=== PATIENT | male | born 1970 | race Hispanic/Latino ===

== ENCOUNTER 2018-08-18 18:25 | Observation (INO) | payer OTHER, SELFPAY ==
[2018-08-18] VITALS (7 sets, daily range): BP systolic 134–158; BP diastolic 80–96; PULSE 58–67; RESP 13–19; TEMP 36.4–36.6; O2SAT 95–99; BMI 37.6
--- NOTE | 2018-08-18 18:44 | ED.CHESTPAIN ---
HPI - Chest Pain General Chief Complaint: Chest Pain Stated Complaint: Pain in chest Time Seen by Provider: 08/18/18 18:37 Source: family Mode of arrival: ambulatory Limitations: language barrier History of Present Illness HPI narrative: Patient is a 47-year-old male presenting with chest pain. He is here with his who is helping to translate. He has known history of hypertension and tobacco abuse. He typically walks to work every day without a problem. However at around 4:00 p.m. he walks to work as usual however he had significant pain in his chest radiating up to his jaw bilaterally and down his left arm. It lasted for about 2 hours he got extremely sweaty. It only now is starting to subside. He denies nausea no fever. states that he has not slept in the last 3 nights. He typically takes amitriptyline to help him sleep but they have been out. His father also had an [place] in his 40s. MD complaint: chest pain Duration: improved Onset: during exertion Pain location: substernal Severity: severe Quality: heaviness Pain radiation: LUE and neck Relieving factors: rest Treatments prior to arrival chest pain: none Related Data Home Medications Medication Instructions Recorded Confirmed lisinopril 10 mg PO DAILY 08/18/18 08/18/18 venlafaxine 37.5 mg PO DAILY 08/18/18 08/18/18 Allergies Allergy/AdvReac Type Severity Reaction Status Date / Time No Known Drug Allergies Allergy Verified 08/18/18 19:44 Review of Systems Review of Systems GENERAL: Denies chills, fatigue, malaise, fever, sweats, travel HEENT: Denies sinus pain, ear pain, sore throat, difficulty swallowing, neck pain RESPIRATORY: Denies dyspnea, cough, wheezing, hemoptysis, sputum. CARDIOVASCULAR: See HPI GASTROINTESTINAL: Denies nausea, vomiting, abdominal pain, diarrhea, constipation, melena. : Denies dysuria, frequency, incontinence, hematuria, urinary retention, flank pain. MUSCULOSKELETAL: Denies weakness, joint pain, or bony pain SKIN: No rash, no erythema, no pruritus NEUROLOGIC: Denies weakness, dizziness, headache, numbness, change in speech, confusion PSYCHIATRIC: No concerning psychosocial issues. 12 point review of systems is negative except for those stated above and HPI [facility] Medical History Hypertension (Acute) Social History (Updated 08/18/18 @ 18:56 by Nuha Becerril DO) Smoking Status: Current every day smoker alcohol intake: never substance use type: does not use Social History household members: significant other Smoking Status: Current every day smoker alcohol intake: never substance use type: does not use Exam Initial Vital Signs Initial Vital Signs: Vital Signs Temperature 97.5 F L 08/18/18 18:34 Pulse Rate 59 L 08/18/18 18:34 Respiratory Rate 19 08/18/18 18:34 Blood Pressure 136/80 08/18/18 18:34 Pulse Oximetry 98 08/18/18 18:34 GENERAL: [Well-appearing, well-nourished] and in [no acute] distress. HEENT: Head atraumatic,EOMI, pupils reactive, CARDIOVASCULAR: Regular rate and rhythm without murmurs, rubs or gallops. RESPIRATORY: Breath sounds equal bilaterally, no wheezes rales or rhonchi. ABDOMEN: Soft, nontender. Normoactive bowel sounds all 4 quadrants. No guarding or rebound. EXTREMITIES: Normal range of motion, no clubbing or edema. Neurovascularly intact NEUROLOGICAL: Alert and oriented x4.Normal gait and speech. Cranial nerves II through XII grossly intact. SKIN: Warm, dry, no laceration, no petechiae, no rashes or lesions. Scores PERC Score Age greater than or equal to 50 years: No Heart rate greater than or equal to 100 bpm: No Room Air O2 Sat less than 95%: No Unilateral leg swelling: No Recent trauma or surgery: No Hemoptysis: No Prior PE or DVT: No Hormone Use: No Total PERC Score: 0 Wells' Criteria for PE Clinical signs and symptoms of PE: No PE is #1 Dx or equally likely: No Heart rate > 100: No Immobilization at least 3 days or surg in previous 4 weeks: No History of PE or DVT: No Hemoptysis: No Malignancy w/Treatment within 6 months or palliative: No Wells' PE Score total: 0 Course Orders Ordered: ED Orders 08/18/18 18:43 Complete Blood Count AUTO DIFF Stat Comprehensive Metabolic Panel Stat D Dimer Stat Hemoglobin A1C% w Est Avg Glu Routine Lipase Stat Magnesium Routine Troponin & CK Cardiac Panel Stat 08/18/18 18:53 XR chest 1V Stat EKG-12 Lead Stat 08/19/18 05:00 NM carmen perf SPECT rest & str Urgent Basic Metabolic Panel Routine Complete Blood Count AUTO DIFF Routine Lipid Panel Routine Acetaminophen (Tylenol) 650 mg PO Q6HR PRN PRN Reason: As Needed for Fever/Mild Pain Docusate Sodium (Colace) 100 mg PO BID PRN PRN Reason: Constipation Sodium Chloride (Normal Saline 0.9%) 1,000 mls @ 150 mls/hr IV CONT KISHA Last Infusion: 08/18/18 23:40 Dose: 150 mls/hr Infusion: 08/18/18 21:45 Dose: 0 mls/hr Admin: 08/18/18 19:26 Dose: 150 mls/hr Morphine Sulfate (Morphine) 2 mg IV Q4HR PRN PRN Reason: Pain, Moderate (4-6) Naloxone HCl (Narcan) 0.2 mg IV Q2MIN PRN PRN Reason: Opiate Reversal Ondansetron HCl (Zofran Odt) 4 mg PO Q8HR PRN PRN Reason: Nausea And Vomiting Discontinued Medications Albuterol/Ipratropium (Duoneb) 3 ml INH NOW ONE Stop: 08/18/18 18:58 Last Admin: 08/18/18 19:13 Dose: 3 ml Aspirin (Aspirin Chew) 324 mg PO NOW ONE Stop: 08/18/18 18:54 Last Admin: 08/18/18 19:26 Dose: 324 mg Vital Signs - 8 hr 08/18/18 18:34 08/18/18 18:45 08/18/18 19:00 Temperature 97.5 F L Pulse Rate 59 L 64 67 Respiratory Rate 19 13 16 Blood Pressure 136/80 Blood Pressure [Left Arm] 136/80 134/84 Pulse Oximetry 98 97 99 08/18/18 19:13 08/18/18 21:04 08/18/18 21:30 Temperature 97.7 F Pulse Rate 58 L 62 Respiratory Rate 14 19 Blood Pressure 158/96 H Blood Pressure [Left Arm] Pulse Oximetry 95 96 97 08/18/18 23:30 08/19/18 00:20 Temperature 97.9 F Pulse Rate 67 Respiratory Rate 18 Blood Pressure 143/84 H Blood Pressure [Left Arm] Pulse Oximetry 97 98 MDM - Chest Pain Lab Data Attestation: I reviewed the patient's lab results. Result diagrams: 08/18/18 18:43 08/18/18 18:43 Lab Results 08/18/18 08/18/18 08/18/18 Range/Units 18:43 18:43 18:43 WBC 7.5 (4.5-11.0) X10^3/uL RBC 5.68 (4.5-5.9) X10^6/uL Hgb 16.6 (13.5-17.5) g/dL Hct 50.2 (41-53) % MCV 88.3 (80-100) fL MCH 29.1 (26-34) PG MCHC 33.0 (30-36) % RDW 13.7 (11.6-14.8) % Plt Count 223 (150-400) X10^3/uL Neut % (Auto) 69.3 (50-75) % Lymph % (Auto) 23.2 L (25-40) % Gray % (Auto) 4.8 (3-14) % Eos % (Auto) 2.2 (2-4) % Baso % (Auto) 0.5 (0-2) % Neut # (Auto) 5200 (8760-5287) /uL Lymph # (Auto) 1700 (4138-0183) /uL Gray # (Auto) 400 (0-900) /uL Eos # (Auto) 200 (0-450) /uL Baso # (Auto) 0 (0-100) /uL D-Dimer < 200 (<230) ng/mL Sodium 141 (137-145) mmol/L Potassium 4.0 (3.4-5.1) mmol/L Chloride 106 (98-107) mmol/L Carbon Dioxide 23 (22-32) mmol/L BUN 22 H (9-20) mg/dL Creatinine 0.90 (0.66-1.25) mg/dL Estimated GFR > 60.0 (>60) mL/min BUN/Creatinine Ratio 24.4 H (6-22) Glucose 131 H (70-100) mg/dL Hemoglobin A1c (4.0-6.0) % Calcium 9.5 (8.4-10.2) mg/dL Magnesium (1.6-2.3) mg/dL Total Bilirubin 0.3 (0.2-1.3) mg/dL AST 26 (17-59) IU/L ALT 34 (21-72) IU/L Alkaline Phosphatase 91 (38-126) U/L Total Creatine Kinase 189 H (55-170) U/L CK-MB (CK-2) 1.46 (<2.37) ng/mL CK-MB (CK-2) Rel Index 0.8 L (1.5-5.0) % Troponin I < 0.012 (0.01-0.034) ng/mL Total Protein 7.6 (6.3-8.2) g/dL Albumin 4.6 (3.5-5.0) g/dL Globulin 3.0 (1.7-4.1) g/dL Albumin/Globulin Ratio 1.5 (1.0-2.8) Lipase 68 (23-300) U/L 08/18/18 08/18/18 Range/Units 18:43 18:43 WBC (4.5-11.0) X10^3/uL RBC (4.5-5.9) X10^6/uL Hgb (13.5-17.5) g/dL Hct (41-53) % MCV (80-100) fL MCH (26-34) PG MCHC (30-36) % RDW (11.6-14.8) % Plt Count (150-400) X10^3/uL Neut % (Auto) (50-75) % Lymph % (Auto) (25-40) % Gray % (Auto) (3-14) % Eos % (Auto) (2-4) % Baso % (Auto) (0-2) % Neut # (Auto) (1744-1230) /uL Lymph # (Auto) (0314-6415) /uL Gray # (Auto) (0-900) /uL Eos # (Auto) (0-450) /uL Baso # (Auto) (0-100) /uL D-Dimer (<230) ng/mL Sodium (137-145) mmol/L Potassium (3.4-5.1) mmol/L Chloride (98-107) mmol/L Carbon Dioxide (22-32) mmol/L BUN (9-20) mg/dL Creatinine (0.66-1.25) mg/dL Estimated GFR (>60) mL/min BUN/Creatinine Ratio (6-22) Glucose (70-100) mg/dL Hemoglobin A1c 5.3 (4.0-6.0) % Calcium (8.4-10.2) mg/dL Magnesium 2.2 (1.6-2.3) mg/dL Total Bilirubin (0.2-1.3) mg/dL AST (17-59) IU/L ALT (21-72) IU/L Alkaline Phosphatase (38-126) U/L Total Creatine Kinase (55-170) U/L CK-MB (CK-2) (<2.37) ng/mL CK-MB (CK-2) Rel Index (1.5-5.0) % Troponin I (0.01-0.034) ng/mL Total Protein (6.3-8.2) g/dL Albumin (3.5-5.0) g/dL Globulin (1.7-4.1) g/dL Albumin/Globulin Ratio (1.0-2.8) Lipase (23-300) U/L Imaging Data Chest x-ray: Radiologist's impression: PROCEDURE: XR CHEST 1V INDICATIONS: chest pain TECHNIQUE: One view of the chest was acquired. COMPARISON: None. FINDINGS: Surgical changes and devices: None. Lungs and pleura: There are low lung volumes with associated vascular crowding. Lungs are otherwise clear. No pleural effusions or pneumothorax. Mediastinum: Mediastinal contours appear normal. Heart size is normal. Bones and chest wall: No suspicious bony lesions. Overlying soft tissues appear unremarkable. IMPRESSION: 1. Low lung volumes without definite acute cardiopulmonary disease. Dictated by: Alphonso Anguiano M.D. on 08/18/2018 at 20:04 ECG Data Attestation: I personally reviewed and interpreted this ECG as follows: Prior ECG tracings: not available for review Interpretation: EKG 1. Normal sinus rhythm rate [address] changes T-wave inversion noted in lead 3. EKG 2. Rate 60 persistent T-wave inversions noted in lead [address] elevations similar to previous EKG MDM Narrative Medical decision making narrative: Patient's symptoms are concerning for cardiac problem. He has remained chest pain-free while in the ED. He received aspirin. Mild improvement after bronchodilators. D-dimer negative low risk for PE. Manjula, agrees with observation. Discharge Plan Departure Patient Disposition: Admitted as Observation Clinical Impression: Chest pain Qualifiers: Chest pain type: unspecified Qualified Code(s): R07.9 - Chest pain, unspecified Discharge Date/Time: 08/18/18 21:45 Interventions: ED Discharge Assessment Last Done: 08/18/18 21:10 Admit Date/Time: 08/18/18 19:58 Admit Provider: Cordell Fair
--- NOTE | 2018-08-18 18:53 | DI.RAD.S_ITS ---
PROCEDURE: XR CHEST 1V INDICATIONS: chest pain TECHNIQUE: One view of the chest was acquired. COMPARISON: None. FINDINGS: Surgical changes and devices: None. Lungs and pleura: There are low lung volumes with associated vascular crowding. Lungs are otherwise clear. No pleural effusions or pneumothorax. Mediastinum: Mediastinal contours appear normal. Heart size is normal. Bones and chest wall: No suspicious bony lesions. Overlying soft tissues appear unremarkable. IMPRESSION: 1. Low lung volumes without definite acute cardiopulmonary disease. Dictated by: Alphonso Anguiano M.D. on 08/18/2018 at 20:04 Approved by: Alphonso Anguiano M.D. on 08/18/2018 at 20:05
[2018-08-18 19:03] LABS: Add Manual Diff / Slide Review NO; Basophils Absolute Auto 0 /uL (0-100); Basophils Percent Auto 0.5 % (0-2); Eosinophils Absolute Auto 200 /uL (0-450); Eosinophils Percent Auto 2.2 % (2-4); Hematocrit 50.2 % (41-53); Hemoglobin 16.6 g/dL (13.5-17.5); Lymphocytes Absolute Auto 1700 /uL (1100-4500); Lymphocytes Percent Auto 23.2 % (25-40); Mean Corpuscular Hemoglobin 29.1 PG (26-34); Mean Corpuscular Volume 88.3 fL (80-100); Monocytes Absolute Auto 400 /uL (0-900); Monocytes Percent Auto 4.8 % (3-14); Neutrophils Absolute Auto 5200 /uL (1500-7000); Neutrophils Percent Auto 69.3 % (50-75); Platelet Count 223 X10^3/uL (150-400); Red Blood Cell Count 5.68 X10^6/uL (4.5-5.9); Red Cell Distribution Width 13.7 % (11.6-14.8); White Blood Cell Count 7.5 X10^3/uL (4.5-11.0)
[2018-08-18 19:08] LABS: Alanine Aminotransferase 34 IU/L (21-72); Albumin 4.6 g/dL (3.5-5.0); Albumin Globulin Ratio 1.5 (1.0-2.8); Alkaline Phosphatase 91 U/L (38-126); Aspartate Aminotransferase 26 IU/L (17-59); BUN Creatinine Ratio 24.4 (6-22); Bilirubin Total 0.3 mg/dL (0.2-1.3); Blood Urea Nitrogen 22 mg/dL (9-20); Calcium 9.5 mg/dL (8.4-10.2); Carbon Dioxide 23 mmol/L (22-32); Chloride 106 mmol/L (98-107); Creatine Kinase 189 U/L (55-170); D Dimer < 200 ng/mL (<230); Estimated Glomerular Filt Rate > 60.0 mL/min (>60); Glucose 131 mg/dL (70-100); Lipase 68 U/L (23-300); Sodium 141 mmol/L (137-145); Total Protein 7.6 g/dL (6.3-8.2)
[2018-08-18] MEDS: ALBUTEROL/IPRATROPIUM 3 ML AMPUL INH (19:13)
[2018-08-18 19:21] LABS: HEMOLYSIS < 15 (0-50); Troponin I < 0.012 ng/mL (0.01-0.034)
[2018-08-18 19:24] LABS: CKMB % Relative Index 0.8 % (1.5-5.0); Creatine Kinase MB 1.46 ng/mL (<2.37)
[2018-08-18] MEDS: ASPIRIN 81 MG TAB 324 MG PO (19:26)
[2018-08-18] MEDS: SODIUM CHLORIDE 0.9% 1,000 ML 150 ML IV (19:26)
[2018-08-18 21:18] LABS: Magnesium 2.2 mg/dL (1.6-2.3)
[2018-08-18 21:21] LABS: Hemoglobin A1C% w Est Avg Glu 5.3 % (4.0-6.0)
--- NOTE | 2018-08-18 21:45 | PC.NURSE ---
normal saline to continue in acute care
--- NOTE | 2018-08-18 22:04 | P.HP_ITS ---
History of Present Illness Date Patient Seen: 08/18/18 Time Patient Seen: 23:40 Chief complaint: Pain in chest Narrative: The patient is a 47-year-old male with PMH of HTN, HLD, tob acco dependence, and prior history of amphetamine use (quit 2017) who presented to the ED earlier out of concern for chest pain. patient experienced sudden, progressive chest discomfort while walking to work. Usually, it takes 20 minutes for patient to walk to work. It is being reported that 10 minutes into the wall he started to experience lightheadedness and mid-sternal chest pain. Describes s ensation as heavy and pressure-like. Intensity of chest discomfort during the entire event did not exceed 6/10. Associated symptoms included paresthesia of left hand and forearm and bilateral tightness of the jaw. At time of the event he also experienced blurry vision, black spots, diaphoresis, palpitations, and tinnitis. Patient continued walking and reaches place of employment. At that time reports being nauseated. He had one episode of vomiting and one episode of diarrhea. At one point he did sit down to rest and believes may have had brief loss of consciousness. This was unwitnessed and cannot be confirmed. The entire episode lasted less than 30 minutes, self resolved with rest. By the time he arrived to the ED he was asymptomatic. No similar events in the past. Patient has underlying history of hypertension, diagnosed in 2017, for which he takes lisinopril. Patient checks his BP routinely in notes said ranging 125- 130/80 mmHg. He has dyslipidemia, diagnosed in the past year, that is currently being managed with dietary vs. non-pharmacological measures. Patient is c onsidered obese (BMI 37.6), his weight has been stable. He is a current some day smoker, reports smoking 1 pack per week for a period of 2 years, which she attributes to anxiety. 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 No prior current history of alcohol use. Denies prior history of MA, cerebrovascular events, cardiac arrhythmia, thyroid disease, GERD, and thrombosis. Family history is significant for MA vs. sudden cardiac (paternal grandfather, age 65) and CVA (father, age 40). In the past month patient reports waking up from sleep, 2 to 3 times a week, with anxiety, palpitations, and shortness of breath. Denies orthopnea, per ipheral edema, or exertional dyspnea. He does not endorse any pulmonary history. Day prior to the event patient was clogged pressure-like sensation in his ears and pounding headache, localized to right frontal temporal aspect of the head. Patient reports a degree of anxiety and difficulty sleeping at night. He is frequently bothered by right lower extremity tention, discomfort and frequent movement. He does not endorse sensation of paresthesia. In the past 1-2 months he has been taking his significant other's amitriptyline, 20 mg, at bedtime to help him sleep. He reports feeling tired and an overall sensation of insufficient rest due to impaired sleep pattern. Patient History Medical History Hypertension (Acute) Social History (Updated 08/18/18 @ 18:56 by Nuha Becerril DO) Smoking Status: Current every day smoker alcohol intake: never substance use type: does not use Family & Social History Social History: household members significant other Prior Living Arrangements House Safety & Behavioral: Feels Safe in Current Yes Environment Tobacco & Substance use: Smoking Status Current every day smoker alcohol intake never Substance Use Type does not use Meds Home Medications Medication Instructions Recorded Confirmed Type lisinopril 10 mg PO DAILY 08/18/18 08/18/18 History venlafaxine 37.5 mg PO DAILY 08/18/18 08/18/18 History Allergies Allergy/AdvReac Type Severity Reaction Status Date / Time No Known Drug Allergies Allergy Verified 08/18/18 19:44 Review of Systems Review of Systems All systems reviewed & are unremarkable except as noted in HPI and below Exam Vital Signs (past 8 hours): - 08/18/18 18:34 08/18/18 18:45 08/18/18 19:00 Temperature 97.5 F L Pulse Rate 59 L 64 67 Respiratory Rate 19 13 16 Blood Pressure 136/80 Blood Pressure [Left Arm] 136/80 134/84 Pulse Oximetry 98 97 99 08/18/18 19:13 08/18/18 21:04 Temperature 97.7 F Pulse Rate 58 L 62 Respiratory Rate 14 19 Blood Pressure 158/96 H Blood Pressure [Left Arm] Pulse Oximetry 95 96 Oxygen Delivery Method Room Air Narrative Exam Narrative: Constitutional: NAD, Neurologic: AOx3, no focal neurological deficits Head: NC, AT Eyes: PERRL, EOMI, Ears: external ears normal, no otorrhea Nose: external nose normal, no rhinorrhea or epistaxis Throat: MMM, oropharynx w/o exudate Neck: no masses, lymphadenopathy, or JVD Chest / Respiratory: equal chest rise, unlabored respiratory effort, no tachypnea CTAB no rrw Heart / CV: S1S2, no murmur Abdomen / GI: round, NT, ND, + BS, no organomegaly : no suprapubic tenderness, no CVA Peripheral / Vascular: warm to touch, DP and PT pulses palpable, no edema Musc: full ROM of upper and lower extremities, adequate muscle tone and bulk Skin: no ecchymosis or suspicious lesions / ulcers Objective Labs Result Diagrams: 08/18/18 18:43 08/18/18 18:43 Labs: Laboratory Results - last 24 hr 08/18/18 08/18/18 08/18/18 18:43 18:43 18:43 WBC 7.5 RBC 5.68 Hgb 16.6 Hct 50.2 MCV 88.3 MCH 29.1 MCHC 33.0 RDW 13.7 Plt Count 223 Neut % (Auto) 69.3 Lymph % (Auto) 23.2 L [place]ane % (Auto) 4.8 Eos % (Auto) 2.2 Baso % (Auto) 0.5 Neut # (Auto) 5200 Lymph # (Auto) 1700 [place] # (Auto) 400 Eos # (Auto) 200 Baso # (Auto) 0 D-Dimer < 200 Sodium 141 Potassium 4.0 Chloride 106 Carbon Dioxide 23 BUN 22 H Creatinine 0.90 Estimated GFR > 60.0 BUN/Creatinine Ratio 24.4 H Glucose 131 H Hemoglobin A1c Calcium 9.5 Magnesium Total Bilirubin 0.3 AST 26 ALT 34 Alkaline Phosphatase 91 Total Creatine Kinase 189 H CK-MB (CK-2) 1.46 CK-MB (CK-2) Rel Index 0.8 L Troponin I < 0.012 Total Protein 7.6 Albumin 4.6 Globulin 3.0 Albumin/Globulin Ratio 1.5 Lipase 68 08/18/18 08/18/18 18:43 18:43 WBC RBC Hgb Hct MCV MCH MCHC RDW Plt Count Neut % (Auto) Lymph % (Auto) [place] % (Auto) Eos % (Auto) Baso % (Auto) Neut # (Auto) Lymph # (Auto) [place] # (Auto) Eos # (Auto) Baso # (Auto) D-Dimer Sodium Potassium Chloride Carbon Dioxide BUN Creatinine Estimated GFR BUN/Creatinine Ratio Glucose Hemoglobin A1c 5.3 Calcium Magnesium 2.2 Total Bilirubin AST ALT Alkaline Phosphatase Total Creatine Kinase CK-MB (CK-2) CK-MB (CK-2) Rel Index Troponin I Total Protein Albumin Globulin Albumin/Globulin Ratio Lipase Assessment & Plan Assessment & Plan narrative: Chest pain, acute, present on admission, active EKG, 08/18/18 @ 1833, SB (v-rate 59), short NE interval, ST changes V3 (to monitor) EKG, 08/18/18 @ 1914, SR (v-rate 60) No further re-curence since presentation to the hospital - Trop < 0.012, D-Dimer < 200, no overt electrolyte abnormalities, EKG non- ischemic VSS - Received ASA 325 in ED, will continue 81 mg QD - Tele monitoring - Trend troponin 0130 and 0730 - Risk stratify: A1C, HLD - NPO at midnight - Stress Test on 08/19/2018 - Supplemental O2 prn, keep SpO2 > 94% - Morphine 2 mg prn CP Syncope, acute, present on admission, active Suspected syncope in the setting of systemic hypoperfusion vs cardiac arrhythmia vs acute coronary event FHx is concerning for sudden cardiac in grandfather at age of 60 and stroke in father at age of 40 - orthostatic BP x2 occurances - echo - bilat carotid u/s Hypovolemia, acute, present on admission, active - IVF @ 75 ml/hr x1L, then d/c Essential hypertension, chronic, present on admission, active - Trend BP while inpatient, controlled by report - Resume PT regimen of lisinopril 10 mg QD -Recommend outpatient sleep study as it may be contributing to PND events, hypertension, and restless leg Dyslipidemia, chronic, present on admission, active unlikely not controlled Patient was told in the past year that he has an abnormal lipid profile. At present time being encouraged to pursue diet and weight reduction approach. Given current morbidities of HTN, obesity, and tobacco use and significant family history of CVA and heart disease in patient's father and grandfather, I would recommend aggressive risk factor modification - FLP in am - Consider starting on atorvastatin 20-40 mg q.h.s. Obesity (BMI 37.6), chronic, present on admission, uncontrolled - Weight reduction highly encouraged via exercise and lifestyle modification in an effort to reduce sequela cardiac and cerebrovascular events Tobacco use, chronic condition, present on admission, active (overall use is light to moderate 1 ppw x2 years) - tobacco cessation highly encouraged - nicotine patch prn Anxiety, chronic condition, present on admission, active - Resume [employer] UNDERWRITER dose of venlafaxine Limb movement activity, chronic (not treated), present on admission, active / bothersome - Recommend outpatient sleep study - Will trial gabapentin 300 mg b.i.d. to help with nectar no limb movement / discomfort, anxiety (as an adjuvant tx to venlofaxine), and sleep Potentially to discuss use of gabapentin with his PCP in the outpatient setting. - Discouraged use of amitriptyline as tricyclic antidepressants can precipitate, worsen or exacerbate limb movement / RLS Full code. Surrogate decision maker is Kyara Grace (significant other) VTE prophylaxis with SCDs Home medications reviewed and reconciled accordingly
[2018-08-19 00:20] VITALS: O2SAT 98
--- NOTE | 2018-08-19 00:24 | PC.NURSE ---
2300- Pt admit for chest pain while walking to work this AM. Denies chest pain while lying in bed, states some dizziness occurs when walking to bathroom. Egyptian speaker w/ girlfriend present in room who speaks tongan; pt is NPO at midnight for stress test in the morning. On telemetry reading SR at this time. 0000- No IV fluids running, but NS ordered to run. Connected to pt as ordered. 0545- Othrostatic BP's ordered qshift, completed by CART DRIVER. UA collected per orders.
[2018-08-19 02:21] LABS: Troponin I < 0.012 ng/mL (0.01-0.034)
[2018-08-19] MEDS: SODIUM CHLORIDE 0.9% 1,000 ML 75 ML IV ×2 (02:57→06:31)
[2018-08-19 06:02] VITALS: BP 131/80; BP 133/88; BP 143/98; PULSE 59; PULSE 63; PULSE 67; RESP 17; TEMP 36.6; O2SAT 98
[2018-08-19 07:27] VITALS: BP 128/90; PULSE 57; RESP 18; TEMP 36.8; O2SAT 95
[2018-08-19 07:56] LABS: Add Manual Diff / Slide Review NO; Basophils Absolute Auto 100 /uL (0-100); Basophils Percent Auto 0.6 % (0-2); Eosinophils Absolute Auto 200 /uL (0-450); Eosinophils Percent Auto 2.8 % (2-4); Hematocrit 44.3 % (41-53); Lymphocytes Absolute Auto 2300 /uL (1100-4500); Lymphocytes Percent Auto 26.3 % (25-40); Mean Corpuscular Volume 88.2 fL (80-100); Monocytes Absolute Auto 500 /uL (0-900); Neutrophils Absolute Auto 5600 /uL (1500-7000); Neutrophils Percent Auto 64.3 % (50-75); Platelet Count 195 X10^3/uL (150-400); Red Blood Cell Count 5.02 X10^6/uL (4.5-5.9); Red Cell Distribution Width 13.5 % (11.6-14.8); White Blood Cell Count 8.7 X10^3/uL (4.5-11.0)
[2018-08-19 08:11] LABS: BUN Creatinine Ratio 26.3 (6-22); Blood Urea Nitrogen 21 mg/dL (9-20); Calcium 8.8 mg/dL (8.4-10.2); Carbon Dioxide 25 mmol/L (22-32); Chloride 108 mmol/L (98-107); Cholesterol 207 mg/dL (140-199); Estimated Glomerular Filt Rate > 60.0 mL/min (>60); Glucose 99 mg/dL (70-100); HDL Cholesterol 35 mg/dL (40-60); HEMOLYSIS < 15 (0-50); LDL Cholesterol Calculated 142 mg/dL (<100); Sodium 139 mmol/L (137-145); Triglycerides 152 mg/dL (35-150)
[2018-08-19 08:22] LABS: Troponin I < 0.012 ng/mL (0.01-0.034)
--- NOTE | 2018-08-19 09:15 | CM.DANOTE ---
Addendum entered by Jeri Blanca R.N. 08/19/18 10:39: Discussed patient in team rounds. Hospitalist, Dr. Pablo, wanted to order a stress test today, but no physician available to do procedure. She stated that he is high risk for cardiac history, due to his family history, and blood pressure. She is considering transferring patient to [facility] for a cardiac workup. Will continue to follow. Original Note: DCP: Case received, EMR reviewed and met with patient. Introduced self and role. Significant other, Kyara, was at bedside to translate, for patient speaks limited Kuwaiti, for patient is German speaking. Information regarding patient's baseline health retrieved by significant, as well as information currently available. Patient is a 47 year old male who admitted yesterday afternoon to the care of the hospitalist team. PCP: [facility]. Payer: Healthcare Management Patient came to hospital via family vehicle due to symptoms of chest pain. He is here for testing. He has been healthy prior. He has a history of amphetamine dependence back in 2017, but no longer takes. He is employed at [employer], and walks to work. Vonnie, is significant other that he resides with. She was able to translate. She stated that they could not remember the name of his primary care provider, but confirmed that he does go to [facility]. Patient resides here in [place]. P: DCP to continue to follow. He may be having further cardiac testing today before discharging home. Jeri Blanca RN/Brine Tank Separator Operator
[2018-08-19 09:20] VITALS: O2SAT 95
[2018-08-19] MEDS: VENLAFAXINE ER 37.5 MG CAP PO (10:21)
[2018-08-19] MEDS: GABAPENTIN 300 MG CAPSULE PO (10:22)
[2018-08-19] MEDS: LISINOPRIL 10 MG TABLET PO (10:23)
[2018-08-19] MEDS: NICOTINE 7 MG PATCH TOP (10:26)
[2018-08-19] MEDS: ASPIRIN EC 81 MG TABLET PO (10:26)
--- NOTE | 2018-08-19 11:25 | PM.DS.1 ---
History of Present Illness Date Patient Seen: 08/18/18 Chief complaint: Pain in chest Narrative: Written by Cordell CASTILLO: The patient is a 47-year-old male with PMH of HTN, HLD, tobacco dependence, and prior history of amphetamine use (quit 2017) who presented to the ED earlier out of concern for chest pain. patient experienced sudden, progressive chest discomfort while walking to work. Usually, it takes 20 minutes for patient to walk to work. It is being reported that 10 minutes into the wall he started to experience lightheadedness and mid-sternal chest pain. Describes sensation as heavy and pressure-like. Intensity of chest discomfort during the entire event did not exceed 6/10. Associated symptoms included paresthesia of left hand and forearm and bilateral tightness of the jaw. At time of the event he also experienced blurry vision, black spots, diaphoresis, palpitations, and tinnitis. Patient continued walking and reaches place of employment. At that time reports being nauseated. He had one episode of vomiting and one episode of diarrhea. At one point he did sit down to rest and believes may have had brief loss of consciousness. This was unwitnessed and cannot be confirmed. The entire episode lasted less than 30 minutes, self resolved with rest. By the time he arrived to the ED he was asymptomatic. No similar events in the past. Patient has underlying history of hypertension, diagnosed in 2017, for which he takes lisinopril. Patient checks his BP routinely in notes said ranging 125-130/80 mmHg. He has dyslipidemia, diagnosed in the past year, that is currently being managed with dietary vs. non-pharmacological measures. Patient is considered obese (BMI 37.6), his weight has been stable. He is a current some day smoker, reports smoking 1 pack per week for a period of 2 years, which she attributes to anxiety. 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 No prior current history of alcohol use. Denies prior history of NE, cerebrovascular events, cardiac arrhythmia, thyroid disease, GERD, and thrombosis. Family history is significant for NE vs. sudden cardiac (paternal grandfather, age 65) and CVA (father, age 40). In the past month patient reports waking up from sleep, 2 to 3 times a week, with anxiety, palpitations, and shortness of breath. Denies orthopnea, peripheral edema, or exertional dyspnea. He does not endorse any pulmonary history. Day prior to the event patient was clogged pressure-like sensation in his ears and pounding headache, localized to right frontal temporal aspect of the head. Patient reports a degree of anxiety and difficulty sleeping at night. He is frequently bothered by right lower extremity tention, discomfort and frequent movement. He does not endorse sensation of paresthesia. In the past 1-2 months he has been taking his significant other's amitriptyline, 20 mg, at bedtime to help him sleep. He reports feeling tired and an overall sensation of insufficient rest due to impaired sleep pattern. Discharge Providers Date of admission: 08/18/18 19:58 Discharge Date: 08/19/18 Discharge provider: Irasema Pablo DO Summary Discharge Diagnosis: 1. Acute substernal chest pain, not present on admission. Resolved prior to admission. 2. Acute presyncopal or syncopal episode, present on admission. Resolved prior to admission. 3. Acute hypovolemia, present on admission. Resolved. 4. Essential hypertension, chronic, present on admission. Stable. 5. Hyperlipidemia, chronic, present on admission. Presumed stable. 6. Obesity, chronic, present on admission. Stable. 7. Tobacco use, chronic condition, present on admission. Stable. 8. Anxiety, chronic condition, present on admission. Stable. 9. Limb movement activity, chronic (not treated), present on admission. Stable. Hospital Course: 1. Acute substernal chest pain, not present on admission. Resolved prior to admission. -EKG, 08/18/18 @ 1833, SB (v-rate 59), short OR interval, ST changes V3 (to monitor) -EKG, 08/18/18 @ 1914, SR (v-rate 60) -No further re-curence since presentation to the hospital - Trop < 0.012 x 2 and CKMB normal at 1.46 and 0.8% . D-Dimer < 200. No overt electrolyte abnormalities. EKG non-ischemic. VSS. -Received ASA 325 in ED and continued aspirin 81 mg daily. -Continued to monitor closely on telemetry. No ectopy. -Risk stratified: Hemglobin A1C 5.3% and fasting lipid panel uncontrolled as below. -NPO. -Due to scheduling error nuclear medicine stress test unavailable as there are no physicians to perform test. Echocardiogram unobtainable. Transferred for higher level of care for nuclear medicine stress test, echocardiogram and bilateral carotid ultrasound. -May use supplemental O2 prn, keep SpO2 > 92%. -Ordered sublingual nitroglycerin and morphine as needed for chest pain. EKG as needed for chest pain. Patient has had no recurrent chest pain since hospitalization. 2. Acute presyncopal or syncopal episode, present on admission. Resolved prior to admission. -Suspected syncope in the setting of systemic hypoperfusion vs cardiac arrhythmia vs acute coronary event. -Family history is concerning for sudden cardiac in grandfather at age of 60 and stroke in father at age of 40. -Ordered orthostatic blood pressure which were negative. -Echocardiogram ordered and unobtainable due to scheduling. -Ordered bilateral carotid ultrasound which was not performed due to transfer. 3. Acute hypovolemia, present on admission. Resolved. -Received 1 L of normal saline at 75 mL/hr. 4. Essential hypertension, chronic, present on admission. Stable. -Patient reports blood pressure well controlled at home. Systolic blood pressure since hospitalization has been mid 130s-150s -Continue lisinopril 10 mg daily. May need to be titrated up for tight blood pressure control. -Recommend outpatient sleep study as it may be contributing to PND events, hypertension, and restless leg. 5. Hyperlipidemia, chronic, present on admission. Presumed stable. -Patient was told in the past year that he has an abnormal lipid profile. At present time being encouraged to pursue diet and weight reduction approach. -Given current morbidities of HTN, obesity, and tobacco use and significant family history of CVA and heart disease in patient's father and grandfather, recommended aggressive risk factor modification and started atorvastatin 40 mg daily at bedtime. -Fasting lipid panel demonstrated uncontrolled lipid profile: Total cholesterol 207, triglycerides 152, LDL 142 (goal< 100), and HDL 35. 6. Obesity, chronic, present on admission. Stable. -BMI 37.6. -Discussed and highly encouraged weight reduction via lifestyle modification including diet and exercise in an effort to reduce sequela of cardiac and cerebrovascular events. 7. Tobacco use, chronic condition, present on admission. Stable. -Overall use is light to moderate 1 ppw x 2 years. -Highly encouraged smoking cessation indefinitely. -Ordered nicotine patch as needed for nicotine withdrawal. 8. Anxiety, chronic condition, present on admission. Stable. -Continued venlafaxine 37.5 mg daily. 9. Limb movement activity, chronic (not treated), present on admission. Stable. -Recommend outpatient sleep study -May trial gabapentin to help with limb movement / discomfort, anxiety (as an adjuvant tx to venlofaxine), and sleep. Potentially to discuss use of gabapentin with his PCP in the outpatient setting. -Discouraged use of amitriptyline as tricyclic antidepressants can precipitate, worsen or exacerbate limb movement/RLS. Status at Discharge Functional status at discharge: independent ambulation Overall status at discharge: patient is back to baseline Exam Vital Signs (past 8 hours): - 08/19/18 06:02 08/19/18 07:27 Temperature 97.9 F 98.3 F Pulse Rate 59 L 57 L Pulse Rate [Orthostatic Lying] 59 L Pulse Rate [Orthostatic Sitting] 63 Pulse Rate [Orthostatic Standing] 67 Respiratory Rate 17 18 Blood Pressure 131/80 128/90 Blood Pressure [Orthostatic Lying] 131/80 Blood Pressure [Orthostatic Sitting] 133/88 Blood Pressure [Orthostatic Standing] 143/98 H Pulse Oximetry 98 95 Oxygen Delivery Method Room Air Oxygen Flow Rate 0 Narrative Exam Narrative: General: Middle-aged gentleman sitting in bed and in no acute distress, well-developed, well-nourished, appropriately interactive. HEENT: Normocephalic, atraumatic. External ears without defect. Pupils equal, round, and reactive to light. Anicteric sclerae, moist conjunctivae, and no lid lag. Oropharynx free of erythema and cobble stoning with moist mucosa. Neck: Supple with full range of motion. No jugular venous distension. No bruits. No lymphadenopathy or thyromegaly. Cardiovascular: Regular rate and rhythm without murmurs, rubs, or gallops appreciated. Pulmonary: Clear to auscultation bilaterally without crackles, wheezes, or rhonchi. Normal respiratory effort without use of accessory muscles. Abdomen: Soft, obese, bowel sounds present, nontender, nondistended. No hepatosplenomegaly or masses appreciated. Extremities: No clubbing, cyanosis, or edema. Skin: Normal temperature, turgor, and texture; no rash, ulcers, or subcutaneous nodules appreciated. Neurological: Cranial nerves grossly intact. Normal muscle strength, tone, and bulk. Reflexes, coordination, and sensory function within normal limits. No known gait impairment. Psychiatric: Mildly anxious mood and normal affect. Alert and oriented to person, place, and time. Objective Labs Result Diagrams: 08/19/18 07:40 08/19/18 07:40 Labs: Laboratory Results - last 24 hr 08/18/18 08/18/18 08/18/18 18:43 18:43 18:43 WBC 7.5 RBC 5.68 Hgb 16.6 Hct 50.2 MCV 88.3 MCH 29.1 MCHC 33.0 RDW 13.7 Plt Count 223 Neut % (Auto) 69.3 Lymph % (Auto) 23.2 L [place] % (Auto) 4.8 Eos % (Auto) 2.2 Baso % (Auto) 0.5 Neut # (Auto) 5200 Lymph # (Auto) 1700 [place] # (Auto) 400 Eos # (Auto) 200 Baso # (Auto) 0 D-Dimer < 200 Sodium 141 Potassium 4.0 Chloride 106 Carbon Dioxide 23 BUN 22 H Creatinine 0.90 Estimated GFR > 60.0 BUN/Creatinine Ratio 24.4 H Glucose 131 H Hemoglobin A1c Calcium 9.5 Magnesium Total Bilirubin 0.3 AST 26 ALT 34 Alkaline Phosphatase 91 Total Creatine Kinase 189 H CK-MB (CK-2) 1.46 CK-MB (CK-2) Rel Index 0.8 L Troponin I < 0.012 Total Protein 7.6 Albumin 4.6 Globulin 3.0 Albumin/Globulin Ratio 1.5 Triglycerides Cholesterol LDL Cholesterol, Calc HDL Cholesterol Lipase 68 08/18/18 08/18/18 08/19/18 18:43 18:43 01:50 WBC RBC Hgb Hct MCV MCH MCHC RDW Plt Count Neut % (Auto) Lymph % (Auto) [place] % (Auto) Eos % (Auto) Baso % (Auto) Neut # (Auto) Lymph # (Auto) [place] # (Auto) Eos # (Auto) Baso # (Auto) D-Dimer Sodium Potassium Chloride Carbon Dioxide BUN Creatinine Estimated GFR BUN/Creatinine Ratio Glucose Hemoglobin A1c 5.3 Calcium Magnesium 2.2 Total Bilirubin AST ALT Alkaline Phosphatase Total Creatine Kinase CK-MB (CK-2) CK-MB (CK-2) Rel Index Troponin I < 0.012 Total Protein Albumin Globulin Albumin/Globulin Ratio Triglycerides Cholesterol LDL Cholesterol, Calc HDL Cholesterol Lipase 08/19/18 08/19/18 08/19/18 07:40 07:40 07:40 WBC 8.7 RBC 5.02 Hgb 15.0 Hct 44.3 MCV 88.2 MCH 30.0 MCHC 34.0 RDW 13.5 Plt Count 195 Neut % (Auto) 64.3 Lymph % (Auto) 26.3 [place] % (Auto) 6.0 Eos % (Auto) 2.8 Baso % (Auto) 0.6 Neut # (Auto) 5600 Lymph # (Auto) 2300 [place] # (Auto) 500 Eos # (Auto) 200 Baso # (Auto) 100 D-Dimer Sodium 139 Potassium 4.0 Chloride 108 H Carbon Dioxide 25 BUN 21 H Creatinine 0.80 Estimated GFR > 60.0 BUN/Creatinine Ratio 26.3 H Glucose 99 Hemoglobin A1c Calcium 8.8 Magnesium Total Bilirubin AST ALT Alkaline Phosphatase Total Creatine Kinase CK-MB (CK-2) CK-MB (CK-2) Rel Index Troponin I < 0.012 Total Protein Albumin Globulin Albumin/Globulin Ratio Triglycerides 152 H Cholesterol 207 H LDL Cholesterol, Calc 142 H HDL Cholesterol 35 L Lipase Discharge Plan Discharge Plan Patient Disposition: [facility] Transfer to: [facility] Under care of provider: Dr. Vasquez Discharge Med Rec/Prescriptions Prescriptions: New aspirin 81 mg Tablet,Delayed Release (Dr/Ec) 81 mg PO DAILY Qty: 30 RF: 0 atorvastatin 40 mg tablet 40 mg PO BEDTIME Qty: 30 RF: 0 Continued lisinopril 10 mg Tablet 10 mg PO DAILY RF: 0 venlafaxine 37.5 mg Tablet Extended Release 24hr 37.5 mg PO DAILY RF: 0 Discharge Orders: Discharge (Order); Ordered 08/19/18 Ordered By: Irasema Pablo Discharge Data Attending Provider: Cordell Fair Admit Date/Time: 08/18/18 19:58
[2018-08-19 11:54] VITALS: BP 153/111; PULSE 72; RESP 16; TEMP 36.7; O2SAT 93
--- NOTE | 2018-08-19 13:55 | PC.NURSE ---
Transfer pt states small amt of chest pain 1x this shift. did have elevated BP once as well, however it went down on its own, labetolol was not given. girlfriend was present in room. pt took all belongings with him. Left via [facility] ambulance at 1400. Report called to St trina Gandhi RN around 1330. PIV remained in pt for transport.
== END 2018-08-19 14:00 | disposition short-term general hospital (02) ==
LOC: ED 19:49 → AC 19:59
PROVIDERS: Admitting Provider Nurse Practitioner Gerontology; Emergency Provider Emergency Medicine; Visit Provider Nurse Practitioner Gerontology
DX: R07.89 Other chest pain (principal); F17.210 Nicotine dependence, cigarettes, uncomplicated; R55 Syncope and collapse; E86.1 Hypovolemia; E78.5 Hyperlipidemia, unspecified; E66.9 Obesity, unspecified; F41.9 Anxiety disorder, unspecified; I10 Essential (primary) hypertension; Z68.37 Body mass index [BMI] 37.0-37.9, adult
CPT/HCPCS: 36415; 36591; 71045; 80048; 80053; 80061; 82550; 82553; 83036; 83690; 83735; 84484; 85025; 85379; 93005; 93306; 94640; 96360; 96361; 99283; 99285; G0378